=== PATIENT | female | born 1965 | race Caucasian/White ===

== ENCOUNTER 2019-10-31 09:24 | Outpatient (CLI) | payer BC, SELFPAY ==
--- NOTE | ~2019-10-31 | MM_ITS ---
EXAMINATION: MM screening [facility] BI w kathrine HISTORY: Screening mammogram TECHNIQUE: Craniocaudal and mediolateral oblique 3-D tomosynthesis images were obtained and synthetic 2-D images were generated. CAD analysis was submitted and interpreted. COMPARISON: 09/24/2018, 08/13/2017 bilateral digital screening mammogram examinations 07/31/2016 left screening and right diagnostic digital mammogram; bilateral complete breast ultrasound 06/13/2015 bilateral diagnostic digital mammogram; bilateral complete breast ultrasound BREAST PARENCHYMAL COMPOSITION: The breasts are heterogeneously dense, which may obscure small masses . FINDINGS: Small masses are suggested in the left breast. Diagnostic left mammogram and left breast ul trasound examination are recommended. There is no evidence of suspicious mass, calcification, or arch itectural distortion to suggest malignancy in the right breast. There has been no suspicious interval change on the right. IMPRESSION: 1. Small left breast masses are suggested 2. Diagnostic left mammogram and left breast ultrasound examination are recommended. BI-RADS Category 0: Incomplete: Needs additional imaging evaluation. Reviewed, dictated and finalized at location A. IMPRESSION: 1. Small left breast masses are suggested 2. Diagnostic left mammogram and left breast ultrasound examination are recomme nded. BI-RADS Category 0: Incomplete: Needs additional imaging evaluation.
== END 2019-10-31 09:25 | disposition home or self-care (01) ==
LOC: ANHIMG 09:27
PROVIDERS: PCP Family Medicine; Visit Provider Obstetrics & Gynecology
DX: Z12.31 Encounter for screening mammogram for malignant neoplasm of breast (principal); R92.8 Other abnormal and inconclusive findings on diagnostic imaging of breast
CPT/HCPCS: 77063; 77067

== ENCOUNTER 2019-11-16 11:20 | Outpatient (CLI) | payer BC, SELFPAY ==
--- NOTE | ~2019-11-16 | MMUS_ITS ---
EXAMINATION: MM diagnostic mammo unilat LT, US breast LT complete HISTORY: Follow-up left breast asymmetries TECHNIQUE: Additional 3-D tomosynthesis images of the left breast were performed and synthetic 2-D im ages were generated. CAD analysis was submitted and interpreted. High resolution left breast ultrasou nd was performed. COMPARISON: Comparison to multiple prior studies sequentially, with oldest reviewed study dated 08/2014. FINDINGS: MAMMOGRAPHIC FINDINGS: The breasts are heterogenously dense, which may obscure small masses. There are no suspicious masses, calcifications or architectural distortion in the left breast to suggest malignancy. ULTRASOUND: Left breast ultrasound: Normal heterogeneous echotexture without focal solid or cystic mass. IMPRESSION: 1. No mammographic or sonographic evidence for malignancy in the left breast. 2. Routine yearly screening mammogram and regular clinical breast examination are recommended. BI-RADS Category 1: Negative Reviewed, dictated and finalized at location A. IMPRESSION: 1. No mammographic or sonographic evidence for malignancy in the left breast. 2. Routine yearly screening mammogram and regular clinical breast examination a re recommended. BI-RADS Category 1: Negative
== END 2019-11-16 11:21 | disposition home or self-care (01) ==
LOC: ANHIMG 11:22
PROVIDERS: PCP Family Medicine; Visit Provider Obstetrics & Gynecology
DX: N63.20 Unspecified lump in the left breast, unspecified quadrant (principal); R92.8 Other abnormal and inconclusive findings on diagnostic imaging of breast
CPT/HCPCS: 76641; 77065

== ENCOUNTER 2020-10-24 11:06 | Outpatient (CLI) | payer BC, SELFPAY ==
--- NOTE | ~2020-10-24 | US_ITS ---
EXAMINATION: US thyroid DATE: 10/24/2020 11:43 INDICATION: Thyromegaly. TECHNIQUE: Multiple ultrasound images of the thyroid were obtained. COMPARISON: Ultrasound 09/24/2017, 07/31/2016 FINDINGS: The right thyroid lobe measures 5.2 x 1.5 x 1.3 cm. The left thyroid lobe measures 4.4 x 1.6 x 1.1 c m. The thyroid demonstrates heterogeneous echogenicity and increased vascularity. There is a 3 mm no dule in right thyroid lobe. There is a 3 mm nodule in left thyroid lobe. IMPRESSION: 1. Heterogeneous, hypervascular thyroid, likely chronic lymphocytic (Ana) thyroiditis. 2. Small thyroid nodules, likely not clinically significant. No follow-up is needed. Reviewed, dictated and finalized at location A. IMPRESSION: 1. Heterogeneous, hypervascular thyroid, likely chronic lymphocytic (Ana) thyroiditis. 2. Small thyroid nodules, likely not clinically significant. No follow-up is ne eded.
== END 2020-10-24 11:07 | disposition home or self-care (01) ==
PROVIDERS: PCP Student in an Organized Health Care Education/Training Program; Visit Provider Student in an Organized Health Care Education/Training Program
DX: E01.0 Iodine-deficiency related diffuse (endemic) goiter (principal)
CPT/HCPCS: 76536

== ENCOUNTER 2020-11-28 09:35 | Outpatient (CLI) | payer BC, SELFPAY ==
--- NOTE | ~2020-11-28 | MM_ITS ---
EXAMINATION: MM screening [facility] BI w kathrine HISTORY: Screening TECHNIQUE: Craniocaudal and mediolateral oblique 3-D tomosynthesis images were obtained and synthetic 2-D images were generated. CAD analysis was submitted and interpreted. COMPARISON: Comparison to multiple prior studies sequentially, with oldest reviewed study dated 07/31. BREAST PARENCHYMAL COMPOSITION: The breasts are heterogenously dense, which may obscure small masses. FINDINGS: There is no evidence of suspicious mass, calcification, or architectural distortion to sugg est malignancy in either breast. There has been no suspicious interval change. IMPRESSION: 1. No mammographic evidence of malignancy. 2. Recommend routine screening mammography in one year. BI-RADS Category 1: Negative Reviewed, dictated and finalized at location A.
== END 2020-11-28 09:36 | disposition home or self-care (01) ==
LOC: ANHIMG 09:37
PROVIDERS: PCP Student in an Organized Health Care Education/Training Program; Visit Provider Obstetrics & Gynecology
DX: Z12.31 Encounter for screening mammogram for malignant neoplasm of breast (principal)
CPT/HCPCS: 77063; 77067

== ENCOUNTER 2021-12-25 14:24 | Outpatient (CLI) | payer BC, SELFPAY ==
--- NOTE | ~2021-12-25 | MM_ITS ---
EXAMINATION: MM screening [facility] BI w kathrine HISTORY: Screening TECHNIQUE: Craniocaudal and mediolateral oblique 3-D tomosynthesis images were obtained and synthetic 2-D images were generated. CAD analysis was submitted and interpreted. COMPARISON: Comparison to multiple prior studies sequentially, with oldest reviewed study dated 07/2017. BREAST PARENCHYMAL COMPOSITION: There are scattered areas of fibroglandular density. FINDINGS: There is no evidence of suspicious mass, calcification, or architectural distortion to sugg est malignancy in either breast. There has been no suspicious interval change. IMPRESSION: 1. No mammographic evidence of malignancy. 2. Recommend routine screening mammography in one year. BI-RADS Category 1: Negative Reviewed, dictated and finalized at location A.
== END 2021-12-25 14:25 | disposition home or self-care (01) ==
LOC: ANHIMG 14:25
PROVIDERS: PCP Student in an Organized Health Care Education/Training Program; Visit Provider Obstetrics & Gynecology
DX: Z12.31 Encounter for screening mammogram for malignant neoplasm of breast (principal)
CPT/HCPCS: 77063; 77067

== ENCOUNTER 2023-02-11 16:10 | Outpatient (CLI) | payer OTHER, SELFPAY ==
--- NOTE | ~2023-02-11 | MM_ITS ---
EXAMINATION: MM screening [facility] BI w kathrine HISTORY: Screening mammogram TECHNIQUE: Craniocaudal and mediolateral oblique 3-D tomosynthesis images were obtained and synthetic 2-D images were generated. CAD analysis was submitted and interpreted. COMPARISON: 12/25/2021, 11/28/2020, 11/16/2019, 10/31/2019 BREAST PARENCHYMAL COMPOSITION:The breasts are heterogeneously dense, which may obscure small masses. FINDINGS: No suspicious mass, calcification, or architectural distortion are identified in either jace ast to suggest malignancy. There has been no suspicious interval change. IMPRESSION: No mammographic evidence of malignancy. Recommend routine screening mammography in one year. BI-RADS Category 1: Negative Reviewed, dictated and finalized at location .
== END 2023-02-11 16:11 | disposition home or self-care (01) ==
LOC: ANHIMG 16:12
PROVIDERS: PCP Student in an Organized Health Care Education/Training Program; Visit Provider Obstetrics & Gynecology
DX: Z12.31 Encounter for screening mammogram for malignant neoplasm of breast (principal)
CPT/HCPCS: 77063; 77067

== ENCOUNTER 2023-03-27 14:48 | Outpatient (CLI) | payer OTHER, SELFPAY ==
--- NOTE | ~2023-03-27 | US_ITS ---
Thyroid ultrasound. Clinical History: Enlarged thyroid gland COMPARISON: 10/24/2020 Findings: Real-time sonography of the thyroid gland was performed. The right lobe measures 5.0 x 1.3 x 1.5 cm. The left lobe measures 4.7 x 1.0 x 1.3 cm. The isthmus is 1 mm in AP diameter. Thyroid parenchyma is somewhat heterogeneous, most notably at the right upper pole, without definite, discrete nodule. Impression: Heterogeneous thyroid parenchyma, especially right upper pole, without definite, discrete nodule.. Reviewed, dictated and finalized at location M. Impression: Heterogeneous thyroid parenchyma, especially right upper pole, without definite , discrete nodule..
== END 2023-03-27 14:49 | disposition home or self-care (01) ==
PROVIDERS: PCP Student in an Organized Health Care Education/Training Program; Visit Provider Obstetrics & Gynecology
DX: E04.9 Nontoxic goiter, unspecified (principal)
CPT/HCPCS: 76536

== ENCOUNTER 2024-02-16 13:42 | Outpatient (CLI) | payer OTHER, SELFPAY ==
--- NOTE | ~2024-02-16 | MM_ITS ---
EXAMINATION: MM screening [facility] BI w kathrine HISTORY: Screening TECHNIQUE: Craniocaudal and mediolateral oblique 3-D tomosynthesis images were obtained and synthetic 2-D images were generated. CAD analysis was submitted and interpreted. COMPARISON: Comparison to multiple prior studies sequentially, with oldest reviewed study dated 10/30. BREAST PARENCHYMAL COMPOSITION: Dense: The breasts are heterogeneously dense, which may obscure small masses FINDINGS: There is no evidence of suspicious mass, calcification, or architectural distortion to sugg est malignancy in either breast. There has been no suspicious interval change. IMPRESSION: 1. No mammographic evidence of malignancy. 2. Recommend routine screening mammography in one year. BI-RADS Category 1: Negative Reviewed, dictated and finalized at location B.
== END 2024-02-16 13:43 | disposition home or self-care (01) ==
LOC: ANHIMG 13:43
PROVIDERS: PCP Student in an Organized Health Care Education/Training Program; Visit Provider Obstetrics & Gynecology
DX: Z12.31 Encounter for screening mammogram for malignant neoplasm of breast (principal)
CPT/HCPCS: 77063; 77067

== ENCOUNTER 2025-05-04 09:28 | Outpatient (CLI) | payer BC, SELFPAY ==
--- NOTE | ~2025-05-04 | MM_ITS ---
EXAMINATION: MM screening blaise BI w kathrine HISTORY: Screening TECHNIQUE: Craniocaudal and mediolateral oblique 3-D tomosynthesis images were obtained and synthetic 2-D images were generated. CAD analysis was submitted and interpreted. COMPARISON: Comparison to multiple prior studies sequentially, with oldest reviewed study dated , 11/28/2020 BREAST PARENCHYMAL COMPOSITION: The breasts are heterogeneously dense, which may obscure small masses. FINDINGS: There is no evidence of suspicious mass, calcification, or architectural distortion to suggest malignancy in either breast. IMPRESSION: 1. No mammographic evidence of malignancy. 2. Recommend routine screening mammography in one year. BI-RADS Category 1: Negative Reviewed, dictated and finalized at location B.
--- OUTSIDE RECORDS SUMMARY | 2025-05-04 10:04 | XMS_ITS | Clinical Summary ---
Author Organization [facility] Address [address] [place] [address] Care Team Providers Care Lvn Lpn Name Role Phone Ru Keenan DO Primary Care Provider + Allergies No known active allergies Medications Killawog-3 Fatty Acids (FISH OIL) 500 MG capsule Take 500 mg by mouth daily. Active cholecalciferol (VITAMIN D3) 125 MCG (5000 UT) Tab Take 1 tablet (5,000 Units total) by mouth daily. Active levothyroxine (SYNTHROID) 50 MCG tabletIndication s:Thyromegaly Take 1 tablet (50 mcg total) by mouth daily. 90 tablet 3 11/18/2024 Active Active Problems Problem Noted Date Diagnosed Date Vitamin D deficiency 10/17/2022 Thyromegaly 09/20/2020 Encounters Date Type Department Care Team Description 04/13/2025 9:20 AM CDT Laboratory Only [facility] Family & Internal Medicine [address] [phone] Ru Keenan DO 04/13/2025 - 04/13/2025 11:59 PM CDT Hospital Encounter [facility] [address] [place] [address] Ru Keenan DO Discharge Disposition: Home or Self Care (Routine Discharge) 04/13/2025 Travel 03/30/2025 Results Follow-Up [facility] Family & Internal Medicine [place] [address] [place] [address] Luchtefeld, Ru P, DO XR HAND LT 3V, URIC ACID BLOOD, RHEUMATOID FACTOR, QUANT, Additional followed-up results: 3 03/23/2025 Travel 03/16/2025 MyChart Message Enc [facility] Family & Internal Medicine [address] [address] Ru Keenan, DO Wrist/elbow pain from Last 3 Months Immunizations Immunization Administration Dates Next Due Flucelvax 6 Months+ (Prefilled Syringe) 04/18/20 20 Pneumococcal (Prevnar 20) 11/18/2024 Tdap (Adacel) 12/11/2017 Family History Medical History Relation Comments No Known Problems Brother Diabetes Father Thyroid Disease Mother Thyroid Disease Sister Relation Status Comments Brother Alive Father Mother Alive Sister Alive Social History Tobacco Use Types Packs/Day Years Used Date Smoking Tobacco: Never Smokeless Tobacco: Never Tobacco Cessation:Counseling Given: Not Answered Alcohol Use Standard Drinks/Week Comments Never 0 (1 standard drink = 0.6 oz pur e alcohol) AUDIT-C Answer Date Recorded Q1: How often do you have a drink containing alc ohol? Never 09/20/2020 Average Number of Drinks Not on file 021 Frequency of Binge Drinking Not on file 09/10 PHQ-2 Answer Date Recorded Patient Health Questionnaire-2 Score 0 11/18/2024 Comments No Sex and Gender Information Value Date Recorded Sex Assigned at Female 11/18/2024 7:58 AM CDT Legal Sex Female 8:13 PM CDT Gender Identity Not on file Sexual Orientation Not on file Occupation Industry Job Start Date Job End Date Not on file Not on file Not on file Not on file Last Filed Vital Signs Vital Sign Reading Time Taken Comments Blood Pressure 104/72 11/18/2024 8:00 AM CDT Pulse 74 11/18/2024 8:00 AM CDT Temperature 36.4 C (97.5 F) 11/18/2024 8:00 AM CDT Respiratory Rate 16 11/18/2024 8:00 AM CDT Oxygen Saturation 98% 11/18/2024 8:00 AM CDT Inhaled Oxygen Concentration - - Weight 50.8 kg (111 lb 14.4 oz) 11/18/2024 8:00 AM CDT Height 166.4 cm (5' 5.5) 11/18/2024 8:00 AM CDT Body Mass Index 18.34 11/18/2024 8:00 AM CDT Plan of Treatment Upcoming Encounters Date Type Department Care Team (Late st Contact Info) Description 05/08/2025 1:20 PM CDT Office Visit [facility] Orthopedic & Sports Medicine - [place] [address] [place], [place] [id number] Camron Roldan MD [address] [place] [address] Health Maintenance Due Date Last Done Comments Hepatitis B Vaccines (1 of 3 - 19+ 3-dose series) 1984 Mammogram Screening 02/15/2025 02/16/2024, 02/11/2023, 12/25/2021, Additional history exists COVID-19 Vaccine ( season) 2025 Influenza Adult (#1) 2025 04/18/2020 Annual Physical 11/18/2025 11/18/2024, 10/11, 10/17/2022, Additional history exists Zoster Vaccines (1 of 2) 11/18/2025 Pos tponed from 2016 (Going to Outside Clinic) Cervical Cancer Screening Pap Smear (Age 30 to 64) Every 3 Years 11/09/2027 11/08/2024, 10/27/2023, 10/21/2022, Additional history exists Colorectal Cancer Screening FIT-DNA (3 Years) 11/30/2027 11/29/2024, 11/29/2024, 10/14/2021, Additional history exists DTaP, Tdap and Td Vaccines (2 - Td or Tdap) 12/12/2027 12/11/2017 Cervical Cancer Screening Pap with HPV Testing (Age 30 to 64) Every 5 Years 11/08/2029 11/08/2024, 10/27/2023, 10/21/2022, Additional history exists Cervical Cancer Screening with HPV 11/08/2029 Hepatitis C Completed 10/04/2021 PHQ-2 (Physician [place]) Completed 11/18/2024 Pneumococcal Vaccine: 50+ Years Completed 11/18/2024 Hepatitis A Vaccines Aged Out No long er eligible based on patient's age to complete this topic Meningococcal B Vaccine Aged Out No l onger eligible based on patient's age to complete this topic Meningococcal Vaccine Aged Out No xiomara gonzalez eligible based on patient's age to complete this topic RSV Immunizations Under 20 Months Aged Out No longer eligible based on patient's age to complete this topic Procedures Procedure Name Priority Date/Time Associated Diagnosis Comments COLLECTION VENOUS BLOOD VENIPUNCTURE Routine 04/13/2025 9:29 AM CDT Left wrist pain ANTINUCLEAR ANTIBODY WI RFX Routine 04/13/2025 9:28 AM CDT Left wrist pain CBC W/DIFF AUTOMATED Routine 04/13/2025 9:28 AM CDT Left wrist pain RHEUMATOID FACTOR, QUANT Routine 04/13/2025 9:28 AM CDT Left wrist pain URIC ACID BLOOD Routine 04/13/2025 9:28 AM CDT Left wrist pain CYCLIC CITRULLINATED PEPTIDE (CCP)ANTIBODY(IGG) Routine 04/13/2025 9:24 AM CDT Left wrist pain XR HAND LT 3V Routine 03/23/2025 1:16 PM CDT Left wrist pain COLOGUARD (EXACT SCIENCE) Routine 11/29/2024 7:30 AM CDT Encounter for colorectal cancer screening using Cologuard test HUMAN PAPILLOMAVIRUS, HIGH-RISK TYPES Routine 11/08/2024 8:00 AM CDT CYTOPATH CERV/VAG THIN LAYER Routine 11/08/2024 12:00 AM CDT MAMMOGRAM GENERIC (SCAN ORDER) 02/16/2024 HEPATITIS C ANTIBODY Routine 10/04/2021 11:31 AM CDT Encounter for preventative adult health care examination Need for hepatitis C screening test from Last 3 Months or Most Recently Relevant to Health Maintenance Results * ANTINUCLEAR ANTIBODY WI RFX (04/13/2025 9:28 AM CDT) ROULA 0.3 04/17/2025 3:37 PM CDT [facility] Comment: NEGATIVE: <0.7 RATIO ROULA PROFILE AND TITER NOT PERFORMED THE ROULA SCREEN TESTS FOR THE FOLLOWING ANTIBODIES BY EIA: SSA1 (RO), SSB1 (LA), JIMENEZ, SCL70, JO1, CENTROMERE, POLISHER BALANCE SCREWHEAD HISTONE MUST BE ORDERED SEPARATELY DNA (DS) ANTIBODY <0.6 IU/ML 025 3:37 PM CDT [facility] Comment: NEGATIVE: <10 IU/mL EQUIVOCAL: 10 to 15 IU/mL POSITIVE: >15 IU/mL THIS QUANTITATIVE ASSAY IS CALIBRATED TO THE [employer]'S WO/80 STANDARD. THE LEVEL OF dsDNA AUTOANTIBODY GERERALLY CORRELATES WITH THE LEVEL OF DISEASE ACTIVITY IN SYSTEMIC LUPUS ERYTHMATOSUS 04/13/2025 9:28 AM CDT Ru Rojaschon LABORATORY Final Re sult Performing Organization Address City/[facility]/ZIP Co de Phone Number [facility] [address] [place] [address], [phone] * RHEUMATOID FACTOR, QUANT (04/13/2025 9:28 AM CDT) Pathologist [facility] RHEUMATOID FACTOR <10 <15 IU/ML 04/13/2025 6:42 PM CDT [facility] 04/13/2025 9:28 AM CDT [facility] LABORATORY Final Re sult Performing Organization Address City/[facility]/ZIP Co de Phone Number [facility] [address] [place] [address], [phone] * (ABNORMAL) CBC W/DIFF AUTOMATED (04/13/2025 9:28 AM CDT) Pathologist [facility] WBC 3.90(L) 4.00 - 10.80 x10'3/uL 04/13/2025 3:14 PM CDT [facility] RBC 4.83 4.10 - 5.40 x10'6/uL 04/13/2025 3:14 PM CDT [facility] HGB 14.1 12.0 - 16.0 G/DL 04/13/2025 3:14 PM CDT [facility] HCT 44.1 36.0 - 47.0 % 04/13/2025 3:14 PM CDT [facility] MCV 91.3 78.0 - 100.0 FL 04/13/2025 3:14 PM CDT [facility] MCH 29.2 27.0 - 31.0 PG 04/13/2025 3:14 PM CDT [facility] MCHC 32.0(L) 33.0 - 36.0 G/DL 04/13/2025 3:14 PM CDT [facility] RDW 12.9 11.5 - 14.5 % 04/13/2025 3:14 PM CDT [facility] PLT 173 150 - 350 x10'3/uL 04/13/2025 3:14 PM CDT [facility] MPV 10.6(H) 7.4 - 10.4 FL 04/13/2025 3:14 PM T [facility] DIFFERENTIAL TYPE AUTOMATED DIFFERENTIAL 04/13/2025 3:14 PM CDT [facility] NEUTROPHILS % 64.4 % 04/13/2025 3:14 PM CDT [facility] LYMPHOCYTES % 26.2 % 04/13/2025 3:14 PM CDT [facility] MONOCYTES % 7.9 % 04/13/2025 3:14 PM CDT [facility] EOSINOPHILS % 1.0 % 04/13/2025 3:14 PM CDT [facility] BASOPHILS % 0.5 % 04/13/2025 3:14 PM CDT [facility] IMMATURE GRANS % 0.0 % 04/13/2025 3:14 PM CDT [facility] ABS. NEUTROPHILS 2.51 1.60 - 8.30 x10'3/uL 04/13/2025 3:14 PM CDT [facility] ABS. LYMPHOCYTES 1.02 0.80 - 4.70 x10'3/uL 04/13/2025 3:14 PM CDT [facility] ABS. MONOCYTES 0.31 0.00 - 1.50 x10'3/uL 04/13/2025 3:14 PM CDT [facility] ABS. EOSINOPHILS 0.04 0.00 - 0.40 x10'3/uL 04/13/2025 3:14 PM CDT [facility] ABS. BASOPHILS 0.02 0.00 - 0.20 x10'3/uL 04/13/2025 3:14 PM CDT [facility] ABS. IMMATURE GRANULOCYTES 0.00 0.00 - 0.03 x10'3/uL 04/13/2025 3:14 PM CDT [facility] 04/13/2025 9:28 AM CDT Ru Keenan DO LABORATORY Final Re sult [facility] [address] [place] [address], [place] [phone] * URIC ACID BLOOD (04/13/2025 9:28 AM CDT) URIC ACID 4.9 2.6 - 6.0 MG/DL 04/13/2025 3:03 PM CDT [facility] 04/13/2025 9:28 AM CDT Ru Keenan DO LABORATORY Final Re sult [facility] [address] [place] [address], * CYCLIC CITRULLINATED PEPTIDE (CCP)ANTIBODY(IGG) (04/13/2025 9:24 AM CDT) CITRULLINE PEPTIDE ANTIBODY <16 UNITS [employer] [facility] Comment: Reference Range Negative: <20 Weak Positive: 20-39 Moderate Positive: 40-59 Strong Positive: >59 04/13/2025 9:24 AM CDT 04/14/2025 4:07 AM CDT Narrative Resulting Agency Comment Performing Organization Information: Site ID: DC Name: [facility] Address: [id number] [place] [id number] Director: Jean Bowers MD Ru Keenan DO LABORATORY Final Re sult Performing Organization Address [facility] Co de Phone Number [facility] [employer] [facility] [phone] [place] [phone], * XR HAND LT 3V (03/23/2025 1:16 PM CDT) Anatomical Region Laterality Modality Hand Radiographic Chelsea ging 03/24/2025 9:34 AM CDT Impressions 03/24/2025 11:17 AM CDT IMPRESSION: 1. Prominent first carpometacarpal osteoarthritis. 2. No radiographic evidence of acute fracture or dislocation. 3. Small periarticular erosion along the middle phalanx third digit and possibly second digit. Recommend correlation with labs for inflammatory arthritis such as gout. The attending radiologist has reviewed the image(s) and agrees with the content of this report. Ordered By: RU KEENAN Interpreted By: Meera Thompson MD, 03/24/2025 9:34 AM Narrative 03/24/2025 11:17 AM CDT [facility] [place] [id number] XR HAND LT 3V: 03/23/2025 1:08 PM CLINICAL INDICATION: Left wrist and hand pain. Pain is notable in the first metacarpal. COMPARISON: None TECHNIQUE: PA, lateral, oblique views of left hand FINDINGS: No radiographic evidence of acute fracture or dislocation is identified. There is notable narrowing at the first carpometacarpal joint space with subchondral sclerosis. The other joints appear largely maintained. There is an osteophyte at the base of the second digit distal phalange. There is a small periarticular erosion along the ulnar aspect of the head of the middle phalanx third digit. There may be a subtle similar appearing finding at the same location in the second digit. The bones are in gross anatomic alignment. Procedure Note Sandi Colbert MD - 03/24/2025 [facility] - [address] [address] XR HAND LT 3V: 03/23/2025 1:08 PM CLINICAL INDICATION: Left wrist and hand pain. Pain is notable in thefirst metacarpal. COMPARISON: None TECHNIQUE: PA, lateral, oblique views of left hand FINDINGS: No radiographic evidence of acute fracture or dislocation is identified.There is notable narrowing at the first carpometacarpal joint space withsubchondral sclerosis. The other joints appear largely maintained. Thereis an osteophyte at the base of the second digit distal phalange. There mary grace small periarticular erosion along the ulnar aspect of the head of themiddle phalanx third digit. There may be a subtle similar appearingfinding at the same location in the second digit. The bones are in grossanatomic alignment. IMPRESSION: 1. Prominent first carpometacarpal osteoarthritis. 2. No radiographic evidence of acute fracture or dislocation. 3. Small periarticular erosion along the middle phalanx third digit andpossibly second digit. Recommend correlation with labs for inflammatoryarthritis such as gout. The attending radiologist has reviewed the image(s) and agrees with thecontent of this report. Ordered By: RU KEENAN Interpreted By: Meera Thompson MD, 03/24/2025 9:34 AM Ru Keenan DO GENERAL IMAGING Final Re sult * COLOGUARD (EXACT SCIENCE) (11/29/2024 7:30 AM CDT) COLOGUARD RESULT Negative Negative [employer] (CLIA #:[id number]) Comment: The Cologuard (TM) test was performed on this specimen. NEGATIVE TEST RESULT. A negative Cologuard result indicates a low likelihood that a colorectal cancer (CRC) or advanced adenoma (adenomatous polyps with more advanced pre-malignant features) is present. The chance that a person with a negative Cologuard test has a colorectal cancer is less than 1 in 1500 (negative predictive value >99.9%) or has an advanced adenoma is less than 5.3% (negative predictive value 94.7%). These data are based on a prospective cross-sectional study of 10,000 individuals at average risk for colorectal cancer who were screened with both Cologuard and colonoscopy. (Pérez Dick. et al, N Engl J Med 2014;370(14):1286- 1297) The normal value (reference range) for this assay is negative. COLOGUARD RE-SCREENING RECOMMENDATION: Periodic colorectal cancer screening is an important part of preventive healthcare for asymptomatic individuals at average risk for colorectal cancer. Following a negative Cologuard result, the [place] Cancer Society and U.S. Multi-Society Task Force screening guidelines recommend a Cologuard re-screening interval of 3 years. References: [place] [employer] Guideline for Colorectal Cancer Screening: https://www.cancer.org/cancer/tycwn-gzrkxr-fimvcp/widjmscuw-tswftbucj-pcbjwcd/ac s-rec ommendations.html.; Randell DONAHUE, Mandi CAMPOS, Josefina LOPEZ, Colorectal Cancer Screening: Recommendations for Physicians and Patients from the U.S. Multi-Society Task Force on Colorectal Cancer Screening , Am J Gastroenterology 2017; 112:3275-0987. TEST DESCRIPTION: Composite algorithmic analysis of stool DNA-biomarkers with hemoglobin immunoassay. Quantitative values of individual biomarkers are not reportable and are not associated with individual biomarker result reference ranges. Cologuard is intended for colorectal cancer screening of adults of either sex, 45 years or older, who are at average-risk for colorectal cancer (CRC). Cologuard has been approved for use by the U.S. FDA. The performance of Cologuard was established in a cross sectional study of average-risk adults aged 50-84. Cologuard performance in patients ages 45 to 49 years was estimated by sub-group analysis of near-age groups. Colonoscopies performed for a positive result may find as the most clinically significant lesion: colorectal cancer [4.0%], advanced adenoma (including sessile serrated polyps greater than or equal to 1cm diameter) [20%] or non- advanced adenoma [31%]; or no colorectal neoplasia [45%]. These estimates are derived from a prospective cross-sectional screening study of 10,000 individuals at average risk for colorectal cancer who were screened with both Cologuard and colonoscopy. (Pérez Perea et al, N Engl J Med 2014;370(14):7274-6052.) Cologuard may produce a false negative or false positive result (no colorectal cancer or precancerous polyp present at colonoscopy follow up). A negative Cologuard test result does not guarantee the absence of CRC or advanced adenoma (pre-cancer). The current Cologuard screening interval is every 3 years. ([place] Cancer Society and U.S. Multi-Society Task Force). Cologuard performance data in a 10,000 patient pivotal study using colonoscopy as the reference method can be accessed at the following location: www.WeMontage/results. Additional description of the Cologuard test process, warnings and precautions can be found at www.Xfluentialrd.com. STOOL STOOL SPECIMEN / Unknown 11/29/2024 7:30 AM CDT 11/30/2024 10:35 AM CDT us Ru Keenan DO BODY FLUIDS AND STOOLS O RDERABLES Final Result [facility] ([facility]) [address] [place] [address], [employer] (CLIA #:[id number]) [place] [address] * HUMAN PAPILLOMAVIRUS, HIGH-RISK TYPES (11/08/2024 8:00 AM CDT) SPEC DESCRIPTION ENDOCERVIX 11/10/2024 11:47 AM CDT [facility] HPV DNA HIGH RISK NEGATIVE NEGATIVE 11/11/2024 2:46 PM CDT [facility] Comment:SEE CYTOLOGY REPORT 11/08/2024 8:00 AM CDT us Zakia Ventura MD PATHOLOGY/CYTOLOGY ORDER PARRIS Final Result [facility] [address] [place] [address], * Cytopath Cerv/Vag Thin Layer (11/08/2024 12:00 AM CDT) THIN PREP PAP [facility] [address] [place] [address] Department of Pathology Pathology Report CERVICAL/VAGINAL PAP SMEAR REPORT Name: LAMAR LAUGHLIN Age: 9 1965 (Age: 59) [facility] Sex: F Collected Date: 11/08/2024 Hospital #: [id number] Date Received: 11/10/2024 Date Reported: 11/18/2024 Provider: ZAKIA VENTURA MD INTERPRETATION CERVICAL/ENDOCERVI MEERA: SATISFACTORY FOR EVALUATION. NEGATIVE FOR INTRAEPITHELIAL LESION OR MALIGNANCY. ATROPHY. NEGATIVE FOR HIGH RISK HPV. The FDA approved Aptima HPV assay is an in vitro nucleic acid amplification test for the qualitative detection of E6/E7 viral messenger RNA (mRNA) from 14 high-risk types of human papillomavirus (HPV) in cervical specimens. The high-risk HPV types detected by the assay include: 16,18,31,33,35,39, 45,51,52,56,58,59, 66, and 68. Electronically Signed Out [facility] Leslie Vargas, ISAMAR (ASCP) CLINICAL HISTORY Z12.4 SCREEN FOR MALIG NEOPLASM OF CERVIX SCREENING PAP ThinPrep Pap Test with HR HPV testing in patient > 30 years requested. Date of Last Menstrual Period: NOT GIVEN Menstrual Status: Not given Contraceptive History: Not given SPECIMEN SUBMITTED CERVICAL/ENDOCERVI MEERA Specimen Received:1 Thin Prep Vial, Image Assisted Pap (SMD) Please note: The Pap smear is not a diagnostic test. It is a screening test. Negative results on combined screening (Pap test and HPV-DNA) have a high negative predictive value (99.1-100 percent) for cervical cancer. The pap test is not effective in detecting cervical adenocarcinoma. [facility] 11/08/2024 11/10/2024 10: 52 AM CDT Comment:CERVICAL/ENDOCERVICA L Zakia Ventura MD PATHOLOGY/CYTOLOGY ORDER PARRIS Final Result [facility] [address] [place] [address], * MAMMOGRAM GENERIC (SCAN ORDER) (02/16/2024) Anatomical Region Laterality Modality Other 02/16/2024 [facility] Scanned SCANNING Final Resu lt * HEPATITIS C ANTIBODY (10/04/2021 11:31 AM CDT) HEPATITIS C AB <0.1 0.0 - 0.9 s/co ratio [facility] 1 Comment: Negative: < 0.8 Indeterminate: 0.8 - 0.9 Positive: > 0.9 The CDC recommends that a positive HCV antibody result be followed up with a HCV Nucleic Acid Amplification test (003858). 10/04/2021 11:3 1 AM CDT 10/04/2021 Narrative [facility] - 10/05/2021 8:14 AM CDT Performed at: - [facility] [address] [id number] Routing Equipment Tender: Danilo Riggs PhD, Phone: [phone] Ru Keenan DO LABORATORY Final Re sult [facility] [address] [place] [address] [facility] 1 from Last 3 Months or Most Recently Relevant to Health Maintenance Insurance [facility] Care Teams Lvn Lpn Relationship Specialty Start Date End Date Ru Keenan DO [facility] [place] [address] PCP - General FAMILY PRACTICE 09/20/20
--- OUTSIDE RECORDS SUMMARY | 2025-05-04 10:04 | XMS_ITS | Encounter Summary ---
Author Organization [facility] Address [facility] [place] [address] Care Team Providers Care [employer] Name Role Phone Denys Wu DO Primary Care Provider + Encounter Details Date Type Department Care Team (Late st Contact Info) Description 03/30/2025 Results Follow-Up [facility] Family & Internal Medicine [facility] [address] [place] [address] Denys Wu DO [facility] [address] [place] [address] XR HAND LT 3V, URIC ACID BLOOD, RHEUMATOID FACTOR, QUANT, Additional followed-up results: 3 Social History Tobacco Use Types Packs/Day Years Used Date Smoking Tobacco: Never Smokeless Tobacco: Never Alcohol Use Standard Drinks/Week Comments Never 0 [...] file Not on file Not on file documented as of this encounter Plan of Treatment Upcoming Encounters Date Type Department Care Team (Late st Contact Info) Description 05/08/2025 1:20 PM CDT Office Visit [facility] Orthopedic & Sports Medicine - [place] [address] [place] [address] Camron Roldan MD [address] [place] [address] documented as of this encounter Visit Diagnoses Not on filedocumented in this encounter Additional Health Concerns Assessment Noted Time PHQ-9 Depression Total Score: 0 10/05/19 22 10:41 AM CDT documented as of this encounter Care Teams [employer] Relationship Specialty Start Date End Date Denys Wu DO [address] [place] [id number] PCP - General FAMILY PRACTICE 09/20/20 documented as of this encounter
--- OUTSIDE RECORDS SUMMARY | 2025-05-04 10:04 | XMS_ITS | Clinical Summary ---
Author Organization [facility] Address [address] [place] [phone] Phone Care Team Providers Care Cook'S Assistant Name Role Phone Jourdan Osborne MD Primary Care Provider [phone] Allergies No known active allergies Medications levothyroxine 50 mcg tablet 50 mcg. 3 12/12/2016 Activ e triamcinolone acetonide (KENALOG) 0.1 % Ointment Apply to affected area 2 times daily as needed for Pain. 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 Gender Identity Not on file Sexual Orientation Not on file Last Filed Vital Signs Vital Sign Reading Time Taken Comments Blood Pressure 113/81 01/12/2017 11:15 AM CDT rt wrist Pulse 86 01/12/2017 11:15 AM CDT Temperature 36.7 C (98 F) 07/04/2010 9:02 AM CERTIFIED GREEN BUILDING ENGINEER Respiratory Rate 16 07/04/2010 9:06 AM CERTIFIED GREEN BUILDING ENGINEER Oxygen Saturation 97% 07/04/2010 9:06 AM CERTIFIED GREEN BUILDING ENGINEER Inhaled Oxygen Concentration - - Weight 53.1 kg (117 lb) 01/12/2017 11:15 AM CDT Height 167.6 cm (5' 6) 01/12/2017 11:15 AM CDT Body Mass Index 18.88 01/12/2017 11:15 AM CDT Plan of Treatment Health Maintenance Due Date Last Done Comments DTAP/TDAP/TD VACCINES (1 - Tdap) 1985 HEPATITIS B VACCINES (1 of 3 - 19+ 3-dose series) 03/14 HPV/Cotest (21-29) 1987 CERVICAL CANCER SCREENING 1996 HPV/Cotest (30-65) 1996 PAP SMEAR 1996 BREAST CANCER SCREENING 2006 FIT-DNA Q 3 years 2011 FIT/FOBT Q 1 year 2011 Flex Sig/CT Colonography Q 5 years 2011 ZOSTER VACCINE (1 of 2) 2016 COLORECTAL SCREENING 07/04/2020 07/04/2010 Colorectal Cancer Screening 07/04/2020 INFLUENZA VACCINE (#1) 2025 Insurance OPTIONS PPO [id number] Advance Directives For more information, please contact: [phone] * Full Code (Latest Code Status on File) Date Activated Date Inactivated Comments 07/04/2010 9:02 AM 07/05/2010 2:32 AM * Full Code Date Activated Date Inactivated Comments 07/04/2010 7:40 AM 07/04/2010 9:02 AM Care Teams Cook'S Assistant Relationship Specialty Start Date End Date Jourdan Osborne MD [address] [place] [address] PCP - General Family Practice 12/17/10
--- OUTSIDE RECORDS SUMMARY | 2025-05-04 10:05 | XMS_ITS | Encounter Summary ---
Author Organization [facility] Address [facility] [place] [address] Care Team Providers Care Oil Inspector Name Role Phone Denys Wu DO Primary Care Provider + Reason for Visit * Reason Onset Date Comments Question 05/03/2024 Encounter Details Date Type Department Care Team (Late st Contact Info) Description 05/03/2024 [employer] Message Enc [facility] Medical Group Family & Internal Medicine [facility] [address] [place] [address] Denys Wu DO [address] [place] [address] Wrist/elbow Social History Tobacco Use Types Packs/Day Years [...] Date Recorded Patient Health Questionnaire-2 Score 0 10/27/2023 Comments No Sex and Gender Information Value Date Recorded Sex Assigned at Female 11/18/2024 7:58 AM CDT Legal Sex Female 8:13 PM CDT Gender Identity Not on file Sexual Orientation Not on file Occupation Industry Job Start Date Job End Date Not on file Not on file Not on file Not on file documented as of this encounter Progress Notes * Denys Wu DO - 05/04/2024 10:02 AM CDT Sent prednisone. * RICHARD Cabrera - 05/03/2024 11:48 AM CDT Do they need an xray? Injury? Have they taken a medrol dose pack? documented in this encounter Plan of Treatment Upcoming Encounters Date Type Department Care Team (Late st Contact Info) Description 05/08/2025 1:20 PM CDT Office Visit [facility] Medical Group Orthopedic & Sports Medicine - [place] [address] [place] [address] Camron Roldan MD [address] [place] [address] documented as of this encounter Visit Diagnoses Diagnosis Carpal tunnel syndrome of left wrist- Primary Carpal tunnel syndrome documented in this encounter Additional Health Concerns Assessment Noted Time PHQ-9 Depression Total Score: 0 10/05/19 10:41 AM CDT documented as of this encounter Care Teams Oil Inspector Relationship Specialty Start Date End Date Denys Wu DO [address] [place] [id number] PCP - General FAMILY PRACTICE 09/20/20 documented as of this encounter
--- OUTSIDE RECORDS SUMMARY | 2025-05-04 10:05 | XMS_ITS | Encounter Summary ---
Author Organization [facility] Address [facility] [place] [address] Care Team Providers Care Storekeeper Steward Name Role Phone Denys Wu DO Primary Care Provider + Encounter Details Date Type Department Care Team (Late st Contact Info) Description 02/27/2022 [employer] Message Enc [facility] Medical Group Family & Internal Medicine [facility] [address] [place] [address] Denys Wu DO [address] [place], [place] [id number] Lab test Social History Tobacco Use Types Packs/Day Years [...] on file 09/10 PHQ-2 Answer Date Recorded PHQ-2 Score - If the patient scores above 3, please move on to questions 3-9 0 10/04/2021 Comments No Sex and Gender Information Value Date Recorded Sex Assigned at Female 11/18/2024 7:58 AM CDT Legal Sex Female 8:13 PM CDT Gender Identity Not on file Sexual Orientation Not on file Occupation Industry Job Start Date Job End Date Not on file Not on file Not on file Not on file COVID-19 Exposure Response Date Recorded In the last 10 days, have yo u been in contact with someone who was confirmed or suspected to have Coronavirus/COVID-19? No / Unsure 02/25/2022 9:16 AM CDT documented as of this encounter Plan of Treatment Upcoming Encounters Date Type Department Care Team (Late st Contact Info) Description 05/08/2025 1:20 PM CDT Office Visit [facility] Medical Group Orthopedic & Sports Medicine - [place] [address] [place] [address] Camron Roldan MD [address] [place] [address] documented as of this encounter Visit Diagnoses Not on filedocumented in this encounter Additional Health Concerns Assessment Noted Time PHQ-9 Depression Total Score: 0 10/05/19 22 10:41 AM CDT documented as of this encounter Care Teams Storekeeper Steward Relationship Specialty Start Date End Date Denys Wu DO [address] [place] [phone] PCP - General FAMILY PRACTICE 09/20/20 documented as of this encounter
--- OUTSIDE RECORDS SUMMARY | 2025-05-04 10:05 | XMS_ITS | Clinical Summary ---
Author Organization [facility] Address [address] [place] [address] Phone Care Team Providers Care Ferryboat Pilot Name Role Phone Denys Wu DO Primary Care Provider + Randall Booth MD Unavailable Allergies No known active allergies Medications levothyroxine (SYNTHROID) 50 MCG Tablet Take 50 mcg by mouth daily. Active Vitamin D3 (CHOLECALCIFEROL ) 125 MCG Tablet Take 5,000 Units by mouth. Active Clyde-3 Fatty Acids (Fish Oil) 500 MG Capsule Take 500 mg by mouth daily. Active Active Problems No known active problems Encounters Date Type Department Care Team Description 05/01/2025 10:30 AM CDT Clinical Support [facility] [address] [place] [address] [place] [address] Nurse, [facility] Leukopenia, unspecified type (Primary Dx); Abnormal CBC 05/01/2025 Travel from Last 3 Months Family History Relation Name Status Comments Father Mother Alive Sister Alive Social History Tobacco Use Types Packs/Day Years Used Date Smoking Tobacco: Never Smokeless Tobacco: Never Tobacco Cessation:Counseling Given: No Alcohol Use Standard Drinks/Week Comments Never 0 (1 standard drink = 0.6 oz pur e alcohol) Comments Unknown Sex and Gender Information Value Date Recorded Sex Assigned at Not on file Legal Sex Female 10:54 AM CDT Gender Identity Not on file Sexual Orientation Not on file Last Filed Vital Signs Vital Sign Reading Time Taken Comments Blood Pressure 110/68 01/09/2025 9:59 AM CDT Pulse 71 01/09/2025 9:59 AM CDT Temperature 36.7 C (98 F) 01/09/2025 9:59 AM CDT Respiratory Rate - - Oxygen Saturation 99% 01/09/2025 9:59 AM CDT Inhaled Oxygen Concentration - - Weight 50.8 kg (112 lb) 01/09/2025 9:59 AM CDT Height 166.4 cm (5' 5.5) 01/09/2025 9:59 AM CDT Body Mass Index 18.35 01/09/2025 9:59 AM CDT Plan of Treatment Upcoming Encounters Date Type Department Care Team (Late st Contact Info) Description 05/08/2025 10:30 AM CDT Office Visit [facility] [address] [place] [facility] [place] [address] Randall Booth MD [address] [place] [address] Health Maintenance Due Date Last Done Comments Mammogram 1966 Hepatitis B Immunization (1 of 3 - 19+ 3-dose series) 1985 HPV/Cotest 1996 Cologuard 2011 Colonoscopy 2011 Colorectal Cancer Screening 2011 Immunochemical Fecal Occult Blood 2011 Influenza Immunization (#1) 2025 10/0 01/2020, 04/18/2019, 04/15/2018 SARS-COV-2 Immunization ( season) 2025 Cervical Cancer Screening (CCS) 11/09/2027 Pap Smear 11/09/2027 11/08/2024, 10/27/2023 Respiratory Syncytial Virus (RSV) Immunization (Adult) (1 - 1-dose 75+ series) 2041 Hepatitis C Virus (HCV) Screening Completed 10/04/2021 Pneumococcal Immunization (5 0+ years) Completed 11/18/2024 Pneumococcal Immunization Combined Discontinued 11/18/2024 TdaP Immunization Completed 01/31/2025, 12/11/2017 Zoster Immunization Completed 02/14/2025, 11/21/2024 Human Papillomavirus (HPV) Immunization Aged Out No longer eligible based on patient's age to complete this topic Meningococcal Immunization (ACWY) Aged Out No longer eligible based on patient's age to complete this topic Rotavirus Immunization Aged Out No lo nger eligible based on patient's age to complete this topic Procedures Procedure Name Priority Date/Time Associated Diagnosis Comments CBC WITH AUTO DIFF [place] Routine 05/01/2025 10:30 AM CDT from Last 3 Months Results * CBC WITH AUTO DIFF [place] (05/01/2025 10:30 AM CDT) WBC 4.8 4.0 - 10.0 10*3/uL CANCER THERMOMETER PRODUCTION WORK[employer] [facility] HGB 14.0 11.2 - 15.7 g/dL CANCER THERMOMETER [employer]ODUCTION WORK[employer] [facility] HCT 42.5 34.1 - 44.9 % CANCER THERMOMETER [employer]ODUCTION WORK[employer] [facility] PLT 175 163 - 369 10*3/uL CANCER THERMOMETER [employer]ODUCTION WORK[employer] [facility] MPV 9.9 9.4 - 12.4 fL CANCER THERMOMETER [employer]ODUCTION WORK[employer] [facility] RBC 4.64 3.93 - 5.22 10*6/uL CANCER THERMOMETER [employer]ODUCTION WORK[employer] [facility] MCV 92 79 - 95 fL [facility] MCH 30.2 25.6 - 32.2 pg CANCER THERMOMETER [employer]ODUCTION WORK[employer] [facility] MCHC 32.9 32.2 - 36.5 g/dL CANCER THERMOMETER PRODUCTION WORKER [facility] RDW 13.2 11.6 - 14.4 % CANCER THERMOMETER [employer]ODUCTION WORK[employer] [facility] Neutrophils % 61.3 36.0 - 66.0 % CANCER THERMOMETER [employer]ODUCTION WORK[employer] [facility] Lymphocytes % 28.1 19.0 - 40.0 % CANCER THERMOMETER PRODUCTION WORK[employer] [facility] Monocytes % 8.3 4.1 - 12.1 % CANCER THERMOMETER [employer]ODUCTION WORK[employer] [facility] Eosinophils % 1.3 0.0 - 3.5 % CANCER THERMOMETER [employer]ODUCTION WORK[employer] [facility] Basophils % 0.8 0.0 - 1.0 % CANCER THERMOMETER [employer]ODUCTION WORK[employer] [facility] Absolute Neutrophils 2.9 1.4 - 6.6 10*3/uL CANCER THERMOMETER [employer]ODUCTION WORK[employer] [facility] Absolute Lymphocytes 1.4 0.8 - 4.0 10*3/uL CANCER THERMOMETER [employer]ODUCTION WORK[employer] [facility] Absolute Monocytes 0.4 0.2 - 1.2 10*3/uL CANCER THERMOMETER [employer]ODUCTION WORK[employer] [facility] Absolute Eosinophils 0.1 0.0 - 0.4 10*3/uL CANCER THERMOMETER PRODUCTION WORKER [facility] Absolute Basophils 0.0 0.0 - 0.1 10*3/ CANCER THERMOMETER [employer]ODUCTION [employer] [facility] 05/01/2025 10:3 0 AM CDT Johanna Moreno APRN, TELECOMMUNICATIONS SALES REPRESENTATIVE LAB SEND OUTS Final Result [employer]ER THERMOMETER [employer] WORK[employer] [facility] [address] [place] [address], from Last 3 Months Insurance [facility] Care Teams Ferryboat Pilot Relationship Specialty Start Date End Date Denys Wu DO [address] [place] [phone] PCP - General Family Medicine 02/22/24 Randall Booth MD [address] [place] [address] [address] [place] [address] [place] [phone] Consulting Physician Oncology 09/01/24
== END 2025-05-04 09:29 | disposition home or self-care (01) ==
PROVIDERS: PCP Student in an Organized Health Care Education/Training Program; Visit Provider Student in an Organized Health Care Education/Training Program
DX: Z12.31 Encounter for screening mammogram for malignant neoplasm of breast (principal)
CPT/HCPCS: 77063; 77067